=== PATIENT | female | born 1950 | race Caucasian/White ===

== ENCOUNTER 2019-04-28 18:11 | Emergency (ER) | payer MEDICARE, SELFPAY ==
[2019-04-28 18:26] VITALS: BP 168/76; PULSE 78; RESP 22; TEMP 36.2; O2SAT 100; BMI 20.5
--- NOTE | 2019-04-28 18:35 | DI.CT.S_ITS ---
PROCEDURE: CT KIDNEY URETER BLADDER (KUB) INDICATIONS: Right sided Flank pain, hx renal stones TECHNIQUE: Noncontrast 5 mm thick sections acquired from the diaphragms to the symphysis. 5 mm thick coronal and sagittal reformats were then performed. For radiation dose reduction, the following was used: automated exposure control, adjustment of mA and/or kV according to patient size. COMPARISON: [facility], CT, KIDNEY/ URETER/BLADDER, 01/24/2010, 0:42. FINDINGS: Image quality: Excellent. Lung bases: There is mild atelectasis and scarring redemonstrated in the lung bases. Heart size is normal. Urinary system: There is an obstructing stone measuring approximately 5 mm within the distal right ureter just proximal to the ureterovesicular junction with associated moderate right hydroureteronephrosis. There is associated mild perinephric and periureteral fat stranding. No left hydronephrosis. Multiple additional bilateral nonobstructing renal stones are demonstrated, approximately 25 on the right with the largest measuring up to 4 mm and approximately 50 on the left with the largest measuring up to approximately 6 mm. Bladder wall thickness is normal; no calcified bladder stones. Other solid organs: Noncontrast evaluation of the liver demonstrates no focal hepatic lesions. The gallbladder appears within normal limits without calcified gallstones. Pancreas is normal in contours. Spleen is normal in size. No adrenal nodules. Peritoneum and bowel: There is mild fluid distention of a few small bowel loops distally with scattered small air-fluid levels. No focal transition point to suggest obstruction. The findings are suggestive of a mild ileus or gastroenteritis. The colon demonstrates normal caliber and wall thickness. Interlobar fluid is also demonstrated within the distal colon suggestive of a gastroenteritis. No evidence of appendicitis. No free fluid or air. Nodes and vessels: No retroperitoneal or mesenteric adenopathy by size criteria. Aorta and inferior vena cava are normal in caliber. Abdominal wall: No ventral hernias. Pelvis: No free pelvic fluid. No inguinal hernias or adenopathy. Bones: No suspicious bony lesions. No vertebral body compression fractures. IMPRESSION: 1. Obstructing 5 mm distal right ureteral stone with associated moderate right hydroureteronephrosis. 2. Numerous additional bilateral nonobstructing renal stones as described. 3. Mild fluid distention of a few small bowel loops with small air-fluid levels as intraluminal fluid in the distal colon likely represent a gastroenteritis. Dictated by: Thomas Tran M.D. on 04/28/2019 at 19:34 Approved by: Thomas Tran M.D. on 04/28/2019 at 19:40
--- NOTE | 2019-04-28 18:48 | ED.FEMALEGU ---
HPI - Female Genitourinary <TRACEE Garibay - Last Filed: 04/28/19 22:29> General Chief complaint: Urogenital-Female Stated complaint: thinks she has a kidney stone Time Seen by Provider: 04/28/19 18:30 Source: patient Mode of arrival: ambulatory Limitations: no limitations History of Present Illness HPI Narrative: 68-year-old female with a history of renal calculi that [place] (6mm and 4mm), presents emergency department today complaining of a sudden onset of right sided flank pain that radiates you're going, she states it is sharp and a 10/10 was worse with movement and better with rest. She states that she was being followed by urologist before she moved recently a few weeks ago for drop. At that point, she was not having any symptoms other than just blood in her urine however to hours ago she developed this pain. She states that she has had multiple episodes of loose stool. Denies nausea, dysuria, fevers, chills, chest pain, shortness of breath, abdominal pain, vomiting, vaginal discharge, or syncope. Female Urogenital Radiation: R Flank Severity: severe Severity scale (1-10): 10 Quality: Sharp Duration: constant Relieving factors: none Exacerbating factors: movement Urinary symptoms: Flank Pain Related Data Previous Rx's Medication Instructions Recorded hydrocodone-acetaminophen [Wood] 1 tab PO Q6H #14 tab 04/28/19 Allergies Allergy/AdvReac Type Severity Reaction Status Date / Time latex [LATEX] Allergy Mild red Verified 04/28/19 19:38 painful rash Review of Systems <TRACEE Garibay - Last Filed: 04/28/19 22:29> Review of Systems REVIEW OF SYSTEMS: GENERAL: Denies fever, chills, malaise, or wt. loss. HENT: No head trauma, sore throat, or dysphagia. EYES: No loss of vision, double vision, eye pain, or irritation. CARDIOVASCULAR: No chest pain, palpitations, or orthopnea. RESPIRATORY: No shortness of breath or cough. GASTROINTESTINAL: Complains of right flank pain abdominal pain, see HPI GENITOURINARY: Complains of right flank pain, denies urinary incontinence, hesitancy, frequency, or dysuria. No vaginal discharge or dyspareunia. Denies concerns for STIs MUSCULOSKELETAL: No pain, weakness, or trauma. INTEGUMENTARY: No rash, lesions, or pruritus. NEURO: No numbness, tingling, memory loss, confusion, or headaches. PSYCH: No behavior or mood changes. PFSH <TRACEE Garibay - Last Filed: 04/28/19 22:29> Medical History Renal calculi (Acute) Social History (Updated 04/28/19 @ 22:26 by TRACEE Garibay) Smoking Status: Never smoker Social History Smoking Status: Never smoker Exam <TRACEE Garibay - Last Filed: 04/28/19 22:29> Initial Vital Signs Initial Vital Signs: Vital Signs Temperature 97.1 F L 04/28/19 18:26 Pulse Rate 78 04/28/19 18:26 Respiratory Rate 22 04/28/19 18:26 Blood Pressure 168/76 H 04/28/19 18:26 Pulse Oximetry 100 04/28/19 18:26 PHYSICAL EXAMINATION: GENERAL: Well groomed, alert, and cooperative. Answers questions promptly and appropriately. Vital signs noted. HENT: Normocephalic, atraumatic. Hearing intact. Oral mucosa is pink and moist. EYES: Conjunctiva pink, sclera white, no periorbital swelling. CARDIOVASCULAR: S1 and S2 sounds normal. Regular rate and rhythm, no murmurs, clicks, or bruits. No pedal edema. RESPIRATORY: Normal respiratory rate, trachea midline, airway patent. No stridor, nasal flaring or accessory muscle use. Lungs are clear in all bender without wheeze, rhonchi, or crackles. GASTROINTESTINAL: Bowel sounds normoactive. Abdomen is soft and non-tender. No organomegaly, no palpable masses. GENITALURINARY: Significant right flank tenderness. MUSCULOSKELETAL: Normal gait and coordination. Equal tone and mass bilaterally. EXTREMITIES: CMS intact, no pedal edema. SKIN: Warm, dry, soft, appropriate color for ethnicity. No lesions, rashes, or wounds. NEURO: Alert and Oriented X 3. Good coordination. No ataxia, or sensory deficits, or cognitive issues. PSYCH: Appropriate affect and mood. <Cedrick Simmons DO - Last Filed: 04/29/19 03:36> Initial Vital Signs Initial Vital Signs: Vital Signs Temperature 97.1 F L 04/28/19 18:26 Pulse Rate 78 04/28/19 18:26 Respiratory Rate 22 04/28/19 18:26 Blood Pressure 168/76 H 04/28/19 18:26 Pulse Oximetry 100 04/28/19 18:26 Course <MitraTRACEE Cameron - Last Filed: 04/28/19 22:29> Orders Ordered: ED Orders 04/28/19 18:40 Complete Blood Count AUTO DIFF Stat Comprehensive Metabolic Panel Stat 04/28/19 19:00 Urine Microscopic Stat Discontinued Medications Hydrocodone Bitart/Acetaminophen (Vicodin Prepack) 1 bottle MISC SEEINSTR ONE Stop: 04/28/19 20:29 Last Admin: 04/28/19 20:35 Dose: 1 bottle Sodium Chloride (Normal Saline 0.9%) 1,000 mls @ 1,000 mls/hr IV BOLUS ONE Stop: 04/28/19 19:34 Last Infusion: 04/28/19 20:22 Dose: 0 mls/hr Admin: 04/28/19 18:51 Dose: 1,000 mls/hr Morphine Sulfate (Morphine) 2 mg IV NOW ONE Stop: 04/28/19 18:48 Last Admin: 04/28/19 18:51 Dose: 2 mg Reevaluation(s) Reevaluation #1: Patient stated that her pain significantly improved after administration of pain medication. Consultations Consultation #1: Patient staffed with Dr. Simmons. Vital Signs - 8 hr 04/28/19 19:37 Pulse Rate 80 Respiratory Rate 14 Blood Pressure [Left Arm] 135/73 Pulse Oximetry 98 <Cedrick Simmons DO - Last Filed: 04/29/19 03:36> Orders Ordered: ED Orders 04/28/19 18:40 Complete Blood Count AUTO DIFF Stat Comprehensive Metabolic Panel Stat 04/28/19 19:00 Urine Microscopic Stat Discontinued Medications Hydrocodone Bitart/Acetaminophen (Vicodin Prepack) 1 bottle MISC SEEINSTR ONE Stop: 04/28/19 20:29 Last Admin: 04/28/19 20:35 Dose: 1 bottle Sodium Chloride (Normal Saline 0.9%) 1,000 mls @ 1,000 mls/hr IV BOLUS ONE Stop: 04/28/19 19:34 Last Infusion: 04/28/19 20:22 Dose: 0 mls/hr Admin: 04/28/19 18:51 Dose: 1,000 mls/hr Morphine Sulfate (Morphine) 2 mg IV NOW ONE Stop: 04/28/19 18:48 Last Admin: 04/28/19 18:51 Dose: 2 mg Vital Signs - 8 hr 04/28/19 19:37 Pulse Rate 80 Respiratory Rate 14 Blood Pressure [Left Arm] 135/73 Pulse Oximetry 98 MDM - Female Genitourinary <Mitra GonzálesTRACEE north - Last Filed: 04/28/19 22:29> Medical Records Attestation: I reviewed the patient's medical records. Lab Data Attestation: I reviewed the patient's lab results. Result diagrams: 04/28/19 18:40 04/28/19 18:40 Lab Results 04/28/19 04/28/19 04/28/19 Range/Units 18:40 18:40 19:00 WBC 10.5 (4.5-11.0) X10^3/uL RBC 5.08 (4.0-5.2) X10^6/uL Hgb 15.4 (12.0-16.0) g/dL Hct 46.2 H (36-46) % MCV 90.9 (80-100) fL MCH 30.4 (26-34) PG MCHC 33.4 (30-36) % RDW 13.2 (11.6-14.8) % Plt Count 331 (150-400) X10^3/uL Neut % (Auto) 54.7 (50-75) % Lymph % (Auto) 37.5 (25-40) % Hardy % (Auto) 6.1 (3-14) % Eos % (Auto) 0.4 L (2-4) % Baso % (Auto) 1.3 (0-2) % Neut # (Auto) 5700 (4105-3365) /uL Lymph # (Auto) 3900 (5662-3014) /uL Hardy # (Auto) 600 (0-900) /uL Eos # (Auto) 0 (0-450) /uL Baso # (Auto) 100 (0-100) /uL Sodium 141 (137-145) mmol/L Potassium 3.7 (3.4-5.1) mmol/L Chloride 104 (98-107) mmol/L Carbon Dioxide 25 (22-32) mmol/L BUN 15 (7-17) mg/dL Creatinine 0.70 (0.52-1.04) mg/dL Estimated GFR > 60.0 (>60) mL/min BUN/Creatinine Ratio 21.4 (6-22) Glucose 116 H (80-110) mg/dL Calcium 9.6 (8.4-10.2) mg/dL Total Bilirubin 0.7 (0.2-1.3) mg/dL AST 29 (14-36) IU/L ALT 25 (9-52) IU/L Alkaline Phosphatase 76 (38-126) U/L Total Protein 7.8 (6.3-8.2) g/dL Albumin 4.6 (3.5-5.0) g/dL Globulin 3.2 (1.7-4.1) g/dL Albumin/Globulin Ratio 1.4 (1.0-2.8) Urine RBC 1-5/hpf (0-5/HPF) Urine WBC 0-1/hpf (0-5/HPF) Urine Bacteria None seen (None) Ur Culture Indicated? Cult not indicated Urine Dip Bedside Urine Glucose Negative Bedside Urine Bilirubin - Negative Bedside Urine Ketone - Negative Urine Specific [place] 1.010 Bedside Urine Occult Blood + Bedside Urine pH 8.0 Bedside Urine Protein - Negative Bedside Urine Urobilinogen - Negative Bedside Urine Nitrite - Negative Bedside Urine Leukocytes + 70 Esterase Imaging Data KUB: Radiologist's impression: [address] [address] [address] Scan Report Signed Patient: Karen Ocasio RMR#: [id number] : 9Acct:[id number] Age/Sex: 68 / FDate of Service: 04/28/19 Loc: ED Accession Number: [id number] Procedure: CT kidney ureter bladder (KUB) Ordering Provider: Mitra Cisneros PROCEDURE: CT KIDNEY URETER BLADDER (KUB) INDICATIONS: Right sided Flank pain, hx renal stones TECHNIQUE: Noncontrast 5 mm thick sections acquired from the diaphragms to the symphysis. 5 mm thick coronal and sagittal reformats were then performed. For radiation dose reduction, the following was used: automated exposure control, adjustment of mA and/or kV according to patient size. COMPARISON: [facility], CT, KIDNEY/ URETER/BLADDER, 01/24/2010, 0:42. FINDINGS: Image quality: Excellent. Lung bases: There is mild atelectasis and scarring redemonstrated in the lung bases. Heart size is normal. Urinary system: There is an obstructing stone measuring approximately 5 mm within the distal right ureter just proximal to the ureterovesicular junction with associated moderate right hydroureteronephrosis. There is associated mild perinephric and periureteral fat stranding. No left hydronephrosis. Multiple additional bilateral nonobstructing renal stones are demonstrated, approximately 25 on the right with the largest measuring up to 4 mm and approximately 50 on the left with the largest measuring up to approximately 6 mm. Bladder wall thickness is normal; no calcified bladder stones. Other solid organs: Noncontrast evaluation of the liver demonstrates no focal hepatic lesions. The gallbladder appears within normal limits without calcified gallstones. Pancreas is normal in contours. Spleen is normal in size. No adrenal nodules. Peritoneum and bowel: There is mild fluid distention of a few small bowel loops distally with scattered small air-fluid levels. No focal transition point to suggest obstruction. The findings are suggestive of a mild ileus or gastroenteritis. The colon demonstrates normal caliber and wall thickness. Interlobar fluid is also demonstrated within the distal colon suggestive of a gastroenteritis. No evidence of appendicitis. No free fluid or air. Nodes and vessels: No retroperitoneal or mesenteric adenopathy by size criteria. Aorta and inferior vena cava are normal in caliber. Abdominal wall: No ventral hernias. Pelvis: No free pelvic fluid. No inguinal hernias or adenopathy. Bones: No suspicious bony lesions. No vertebral body compression fractures. IMPRESSION: 1. Obstructing 5 mm distal right ureteral stone with associated moderate right hydroureteronephrosis. 2. Numerous additional bilateral nonobstructing renal stones as described. 3. Mild fluid distention of a few small bowel loops with small air-fluid levels as intraluminal fluid in the distal colon likely represent a gastroenteritis. Dictated by: Thomas Tran M.D. on 04/28/2019 at 19:34 Approved by: Thomas Tran M.D. on 04/28/2019 at 19:40 MDM Narrative Medical decision making narrative: Renal calculi remain the top diagnosis (5mm stone seen on CT, history of renal calculi, right flank tenderness), although stone is obstructing there is no sign of infection (lack of systemic symptoms such as fever, and normal white blood cell count, no bacteria seen in urinalysis, normal renal enzymes). Thus, patient is a candidate for outpatient follow-up. Additionally as seen on CT, it is peers that her diarrhea may be due from a gastroenteritis (again very little concern for systemic illness due to lack of systemic symptoms). Strict return precautions given and follow-up instructions discussed <Cderick Simmons DO - Last Filed: 04/29/19 03:36> Lab Data Lab Results 04/28/19 04/28/19 04/28/19 Range/Units 18:40 18:40 19:00 WBC 10.5 (4.5-11.0) X10^3/uL RBC 5.08 (4.0-5.2) X10^6/uL Hgb 15.4 (12.0-16.0) g/dL Hct 46.2 H (36-46) % MCV 90.9 (80-100) fL MCH 30.4 (26-34) PG MCHC 33.4 (30-36) % RDW 13.2 (11.6-14.8) % Plt Count 331 (150-400) X10^3/uL Neut % (Auto) 54.7 (50-75) % Lymph % (Auto) 37.5 (25-40) % Hardy % (Auto) 6.1 (3-14) % Eos % (Auto) 0.4 L (2-4) % Baso % (Auto) 1.3 (0-2) % Neut # (Auto) 5700 (7154-8100) /uL Lymph # (Auto) 3900 (5229-7712) /uL Hardy # (Auto) 600 (0-900) /uL Eos # (Auto) 0 (0-450) /uL Baso # (Auto) 100 (0-100) /uL Sodium 141 (137-145) mmol/L Potassium 3.7 (3.4-5.1) mmol/L Chloride 104 (98-107) mmol/L Carbon Dioxide 25 (22-32) mmol/L BUN 15 (7-17) mg/dL Creatinine 0.70 (0.52-1.04) mg/dL Estimated GFR > 60.0 (>60) mL/min BUN/Creatinine Ratio 21.4 (6-22) Glucose 116 H (80-110) mg/dL Calcium 9.6 (8.4-10.2) mg/dL Total Bilirubin 0.7 (0.2-1.3) mg/dL AST 29 (14-36) IU/L ALT 25 (9-52) IU/L Alkaline Phosphatase 76 (38-126) U/L Total Protein 7.8 (6.3-8.2) g/dL Albumin 4.6 (3.5-5.0) g/dL Globulin 3.2 (1.7-4.1) g/dL Albumin/Globulin Ratio 1.4 (1.0-2.8) Urine RBC 1-5/hpf (0-5/HPF) Urine WBC 0-1/hpf (0-5/HPF) Urine Bacteria None seen (None) Ur Culture Indicated? Cult not indicated Urine Dip Bedside Urine Glucose Negative Bedside Urine Bilirubin - Negative Bedside Urine Ketone - Negative Urine Specific [place] 1.010 Bedside Urine Occult Blood + Bedside Urine pH 8.0 Bedside Urine Protein - Negative Bedside Urine Urobilinogen - Negative Bedside Urine Nitrite - Negative Bedside Urine Leukocytes + 70 Esterase Discharge Plan Departure Patient Disposition: Home Clinical Impression: Renal calculi Discharge Date/Time: 04/28/19 20:40 Interventions: ED Discharge Assessment Last Done: 04/28/19 20:38 Instructions: DI for Kidney Stones Activity Restrictions/Additional Instructions: Thank you for entrusting me with your care today. As discussed, you have a 5mm obstructing renal stone on her right ureter. Please follow-up with the urologist as soon as possible for further treatment. I have prescribed you a medication help with pain, this can make you drowsy as well as constipated so please monitor your symptoms carefully and do not drive while using this medication. Return to the emergency department if you have severe pain, fevers, chills, uncontrollable vomiting, chest pain, or shortness of breath. Prescriptions: New hydrocodone-acetaminophen [Wood] 5-325 mg tablet 1 tab PO Q6H Qty: 14 RF: 0 Referrals: Melina Hills MD [Non-Staff] - Ynes Frank PA-C [Primary Care Provider] - <Cedrick Simmons DO - Last Filed: 04/29/19 03:36> Cosign ED Attending Coscarolineature Attestation: I was immediately available in the department for consultation. Documentation has been reviewed. I agree with assessment and plan.
[2019-04-28] MEDS: SODIUM CHLORIDE 0.9% 1,000 ML 1000 ML IV (18:51)
[2019-04-28] MEDS: MORPHINE 2 MG/ML INJ IV (18:51)
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
[2019-04-28 18:52] LABS: Add Manual Diff / Slide Review NO; Basophils Absolute Auto 100 /uL (0-100); Basophils Percent Auto 1.3 % (0-2); Eosinophils Absolute Auto 0 /uL (0-450); Eosinophils Percent Auto 0.4 % (2-4); Hematocrit 46.2 % (36-46); Hemoglobin 15.4 g/dL (12.0-16.0); Lymphocytes Absolute Auto 3900 /uL (1100-4500); Lymphocytes Percent Auto 37.5 % (25-40); Mean Corpuscular HGB Conc 33.4 % (30-36); Mean Corpuscular Hemoglobin 30.4 PG (26-34); Mean Corpuscular Volume 90.9 fL (80-100); Monocytes Absolute Auto 600 /uL (0-900); Monocytes Percent Auto 6.1 % (3-14); Neutrophils Absolute Auto 5700 /uL (1500-7000); Neutrophils Percent Auto 54.7 % (50-75); Platelet Count 331 X10^3/uL (150-400); Red Blood Cell Count 5.08 X10^6/uL (4.0-5.2); Red Cell Distribution Width 13.2 % (11.6-14.8); White Blood Cell Count 10.5 X10^3/uL (4.5-11.0)
[2019-04-28 19:00] LABS: Alanine Aminotransferase 25 IU/L (9-52); Albumin 4.6 g/dL (3.5-5.0); Albumin Globulin Ratio 1.4 (1.0-2.8); Alkaline Phosphatase 76 U/L (38-126); Aspartate Aminotransferase 29 IU/L (14-36); BUN Creatinine Ratio 21.4 (6-22); Bilirubin Total 0.7 mg/dL (0.2-1.3); Blood Urea Nitrogen 15 mg/dL (7-17); Calcium 9.6 mg/dL (8.4-10.2); Carbon Dioxide 25 mmol/L (22-32); Chloride 104 mmol/L (98-107); Estimated Glomerular Filt Rate > 60.0 mL/min (>60); Globulin 3.2 g/dL (1.7-4.1); Glucose 116 mg/dL (80-110); HEMOLYSIS < 15 (0-50); Potassium 3.7 mmol/L (3.4-5.1); Sodium 141 mmol/L (137-145); Total Protein 7.8 g/dL (6.3-8.2)
[2019-04-28 19:01] LABS: Bacteria Urine None Seen
[2019-04-28 19:07] LABS: Culture Indicated Urine Cult Not Indicated; RBC Urine 1-5/HPF (0-5/HPF); WBC Urine 0-1/HPF (0-5/HPF)
[2019-04-28 19:37] VITALS: BP 135/73; PULSE 80; RESP 14; O2SAT 98
[2019-04-28] MEDS: HYDROCODONE/ACET 5/325 PREPACK 1 BOTTLE MISC (20:35)
== END 2019-04-28 20:40 | disposition home or self-care (01) ==
PROVIDERS: Emergency Provider Nurse Practitioner; PCP Physician Assistant
DX: N20.0 Calculus of kidney (principal)
CPT/HCPCS: 36591; 74176; 80053; 81003; 81015; 85025; 96361; 96374; 99283; 99284; J2270

== ENCOUNTER → 2019-05-13 08:25 | Outpatient (CLI) | payer MEDICARE, SELFPAY ==
[2019-05-13 09:54] LABS: Alanine Aminotransferase 15 IU/L (9-52); Albumin 4.6 g/dL (3.5-5.0); Albumin Globulin Ratio 1.5 (1.0-2.8); Alkaline Phosphatase 67 U/L (38-126); Aspartate Aminotransferase 27 IU/L (14-36); Bilirubin Total 0.6 mg/dL (0.2-1.3); Blood Urea Nitrogen 12 mg/dL (7-17); Carbon Dioxide 30 mmol/L (22-32); Chloride 103 mmol/L (98-107); Estimated Glomerular Filt Rate > 60.0 mL/min (>60); Glucose 94 mg/dL (80-110); HEMOLYSIS < 15 (0-50); Potassium 4.4 mmol/L (3.4-5.1); Sodium 139 mmol/L (137-145); Total Protein 7.6 g/dL (6.3-8.2); Uric Acid 4.4 mg/dL (2.5-6.2)
[2019-05-16 15:58] LABS: Parathyroid Hormone Int 28 pg/mL (14-64)
== END ==
PROVIDERS: Visit Provider Urology
DX: N20.0 Calculus of kidney (principal)
CPT/HCPCS: 36415; 80053; 83970; 84550

== ENCOUNTER → 2021-04-23 12:08 | Outpatient (CLI) | payer OTHER, SELFPAY | PROVIDERS: Referring Provider Physician Assistant; Visit Provider Physician Assistant | DX: R07.89 Other chest pain (principal) ==

== ENCOUNTER → 2021-04-23 12:17 | Outpatient (CLI) | payer MEDICARE, SELFPAY ==
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
== END ==
PROVIDERS: Referring Provider Physician Assistant; Visit Provider Physician Assistant
DX: R07.89 Other chest pain (principal); I65.29 Occlusion and stenosis of unspecified carotid artery; M47.812 Spondylosis without myelopathy or radiculopathy, cervical region; E07.9 Disorder of thyroid, unspecified
CPT/HCPCS: 70450; 71046; 72125

== ENCOUNTER → 2021-09-15 14:24 | Outpatient (CLI) | payer MEDICARE, SELFPAY ==
[2021-09-15 16:03] LABS: Add Manual Diff / Slide Review NO; Basophils Absolute Auto 100 /uL (0-100); Basophils Percent Auto 0.7 % (0-2); Eosinophils Absolute Auto 0 /uL (0-450); Eosinophils Percent Auto 0.3 % (2-4); Hematocrit 44.6 % (36-46); Lymphocytes Absolute Auto 2700 /uL (1100-4500); Lymphocytes Percent Auto 29.3 % (25-40); Mean Corpuscular HGB Conc 33.6 % (30-36); Mean Corpuscular Hemoglobin 30.7 PG (26-34); Mean Corpuscular Volume 91.1 fL (80-100); Monocytes Absolute Auto 400 /uL (0-900); Monocytes Percent Auto 4.2 % (3-14); Neutrophils Absolute Auto 6100 /uL (1500-7000); Neutrophils Percent Auto 65.5 % (50-75); Platelet Count 304 X10^3/uL (150-400); White Blood Cell Count 9.3 X10^3/uL (4.5-11.0)
[2021-09-15 17:08] LABS: Free T4, Direct Thyroxine 0.97 ng/dL (0.78-2.19)
[2021-09-15 17:22] LABS: Thyroid Stimulating Hormone 2.06 uIU/mL (0.47-4.68)
== END ==
PROVIDERS: Referring Provider Physician Assistant; Visit Provider Physician Assistant
DX: D72.819 Decreased white blood cell count, unspecified (principal); J18.9 Pneumonia, unspecified organism; E04.1 Nontoxic single thyroid nodule
CPT/HCPCS: 36415; 84439; 84443; 85025

== ENCOUNTER → 2021-09-18 13:45 | Outpatient (CLI) | payer MEDICARE, SELFPAY ==
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
== END ==
PROVIDERS: Referring Provider Family Medicine; Visit Provider Family Medicine
DX: J18.9 Pneumonia, unspecified organism (principal)
CPT/HCPCS: 71046